=== PATIENT | male | born 1965 | race Two or more races ===

== ENCOUNTER 2022-12-06 16:56 | Emergency (ER) | payer OTHER ==
[~2022-12-06] VITALS: Ht 177.8 cm; Wt 75.0 kg
[2022-12-06 17:02] VITALS: BP 122/81
== END 2022-12-06 19:38 | disposition home or self-care (01) ==
LOC: ER 16:56
DX: S81.012A Laceration without foreign body, left knee, initial encounter (principal); W27.0XXA Contact with workbench tool, initial encounter; Y93.89 Activity, other specified; Y92.89 Other specified places as the place of occurrence of the external cause; Y99.8 Other external cause status
CPT/HCPCS: 29505; 99283; Z7610